=== PATIENT | male | born 1955 | race Caucasian/White ===

== ENCOUNTER 2020-02-23 14:28 | Emergency (ER) | payer MEDICARE, OTHER ==
--- NOTE | 2020-02-23 14:57 | ER Document Report ---
ED General - General Chief Complaint: S/S of Possible Stroke Stated Complaint: STROKE-LIKE SYMPTOMS Time Seen by Provider: 02/23/20 14:38 Primary Care Provider: MATEO GUTIÉRREZ MD [ACTIVE STAFF] - Follow up as needed Mode of Arrival: Ambulatory Information source: Patient Notes: 64-year-old male arrives by POV very sweaty after he was attempting to move a 200 pound rug into his truck today he became symptomatic with left facial numbness left tongue numbness ascending paralysis of his left hand to his shoulder with also numbness to his left lower extremity which lasted for around 30 minutes. 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 For the last several months he has been having 2-3 times each month increasing frequency of the symptoms. Patient denies any LOC. In fact he drove himself to both hospitals; initially in September and also today. 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 Patient reports also last year September 2019 he had his left TKR and in January 2018 right sided TKR TRAVEL OUTSIDE OF THE [place] IN LAST 30 DAYS: No - Related Data Allergies/Adverse Reactions: No Known Allergies Allergy (Verified 02/23/20 14:38) Home Medications: Allopurinol; metformin HCL ER; Atorovastatin Calcium; Lisinopril; fish Oil; Multi vitamin; Air born Past Medical History - General Information source: Patient - Social History Smoking Status: Never Smoker Cigarette use (# per day): No Chew tobacco use (# tins/day): No Smoking Education Provided: No Frequency of alcohol use: Social Drug Abuse: None Lives with: Family Family History: Reviewed & Not Pertinent Patient has suicidal ideation: No Patient has homicidal ideation: No Review of Systems - Review of Systems Constitutional: Weakness EENT: No symptoms reported Cardiovascular: No symptoms reported Respiratory: No symptoms reported Gastrointestinal: No symptoms reported Genitourinary: No symptoms reported Male Genitourinary: No symptoms reported Musculoskeletal: No symptoms reported Skin: No symptoms reported Hematologic/Lymphatic: No symptoms reported Neurological/Psychological: See HPI, Weakness, Loss of power, Numbness, Tingling Physical Exam - Vital signs Vitals: Resp Pulse Ox 18 98 02/23/20 14:37 02/23/20 14:37 Interpretation: Normal - General General appearance: Alert In distress: Mild - HEENT Head: Normocephalic Eyes: Normal Conjunctiva: Normal Cornea: Normal Extraocular movements intact: Yes Eyelashes: Normal Pupils: PERRL Pharynx: Normal Neck: Normal - Respiratory Respiratory status: No respiratory distress Chest status: Nontender Breath sounds: Normal Chest palpation: Normal - Cardiovascular Rhythm: Regular Heart sounds: Normal auscultation Murmur: No Friction rub: No Dottie's crunch: No - Abdominal Inspection: Normal Distension: No distension Bowel sounds: Normal Tenderness: Nontender Organomegaly: No organomegaly - Back Back: Normal - Extremities General upper extremity: Normal inspection - on right, Other - Left-sided numbness of left upper extremity left lower extremity General lower extremity: Normal inspection - on right - Neurological Neuro grossly intact: Yes Cognition: Normal Orientation: AAOx4 Arjun Coma Scale Eye Opening: Spontaneous Arjun Coma Scale Verbal: Oriented Arjun Coma Scale Motor: Obeys Commands Arjun Coma Scale Total: 15 Speech: Normal Cranial nerves: Normal Cerebellar coordination: Normal Motor strength normal: LUE, RUE, LLE, RLE - Psychological Associated symptoms: Normal affect - Skin Skin Temperature: Warm Skin Moisture: Dry Course - Vital Signs Vital signs: Temp Pulse Resp BP Pulse Ox 68 17 153/86 H 98 02/23/20 20:00 02/23/20 20:00 02/23/20 20:00 02/23/20 20:00 - Laboratory Result Diagrams: 02/23/20 14:36 02/23/20 14:36 Laboratory results interpreted by me: 02/23/20 02/23/20 14:36 14:36 RBC 3.94 L Hct 37.3 L MCH 34.7 H MCHC 36.6 H Eos % (Auto) 6.3 H BUN 21 H Glucose 122 H - Diagnostic Test Radiology reviewed: Reports reviewed Critical Care Note - Critical Care Note Total time excluding time spent on procedures (mins): 90 Comments: I advised patient of his CT findings and lab findings and he advises he wants to go home. I called [facility] and advised him of his request and I spoke with Golden at the transfer center and she will arrange for a neuro logist ; I attempted to call the number at [phone] but was advised to follow-up later. I advised patient to call this number tomorrow Discharge - Discharge Clinical Impression: TIA (transient ischemic attack) Condition: Good Disposition: HOME, SELF-CARE Additional Instructions: Follow-up with neurologist at transfer center at [facility]; return to ER as needed take medicines as directed. The telephone number for [facility] neurology is [phone] Referrals: MATEO GUTIÉRREZ MD [ACTIVE STAFF] - Follow up as needed
[2020-02-23 17:29] LABS: ABSOLUTE BASOPHILS # (AUTO) 0.1 10^3/uL (0.0-0.2); ABSOLUTE EOSINOPHILS # (AUTO) 0.4 10^3/uL (0.0-0.6); ABSOLUTE LYMPHOCYTES (AUTO) 1.2 10^3/uL (0.5-4.7); ABSOLUTE MONOCYTES (AUTO) 0.4 10^3/uL (0.1-1.4); ABSOLUTE NEUT (AUTO) 4.9 10^3/uL (1.7-8.2); EOSINOPHILS % (AUTO) 6.3 % (0-6); HEMATOCRIT 37.3 % (37.9-51.0); HEMOGLOBIN 13.7 g/dL (13.5-17.0); LYMPHOCYTES % (AUTO) 16.7 % (13-45); MEAN CORPUSCULAR HEMOGLOBIN 34.7 pg (27.0-33.4); MEAN CORPUSCULAR HGB CONC 36.6 g/dL (32.0-36.0); MEAN CORPUSCULAR VOLUME 95 fl (80-97); PLATELET COUNT 164 10^3/uL (150-450); RED BLOOD COUNT 3.94 10^6/uL (4.35-5.55); RED CELL DISTRIBUTION WIDTH 13.6 % (11.5-14.0); TOTAL CELLS COUNTED % (AUTO) 100 %
[2020-02-23 17:33] LABS: INTERNATIONAL RATION (INR) 1.02; PROTHROMBIN TIME 13.4 SEC (11.4-15.4)
[2020-02-23 17:49] LABS: ALBUMIN 4.3 g/dL (3.5-5.0); ALKALINE PHOSPHATASE 73 U/L (38-126); ANION GAP 8 (5-19); ASPARTATE AMINO TRANSFERASE 25 U/L (17-59); BILIRUBIN,TOTAL 0.7 mg/dL (0.2-1.3); BLOOD UREA NITROGEN 21 mg/dL (7-20); CALCIUM 9.4 mg/dL (8.4-10.2); CARBON DIOXIDE 27 mmol/L (22-30); CHLORIDE 104 mmol/L (98-107); CREATINE KINASE 74 U/L (55-170); GLUCOSE 122 mg/dL (75-110); POTASSIUM 4.3 mmol/L (3.6-5.0); TOTAL PROTEIN 6.9 g/dL (6.3-8.2)
--- NOTE | 2020-02-23 18:26 | RADIOLOGY REPORT (SQ) ---
EXAM DESCRIPTION: CT SOFT TISSUE NECK WITHOUT; CT HEAD WITHOUT COMPLETED DATE/TIME: 02/23/2020 6:13 pm REASON FOR STUDY: RIGHT SIDED STENOSIS; cva sx COMPARISON: None. TECHNIQUE: Noncontrast scanning from skull base through lung apices with review of bone, soft tissue and lung windows. Additional noncontrast imaging through the brain. Review of brain and subdural and bone windows. Reconstructed coronal and sagittal MPR images reviewed. All images stored on PACS. All CT scanners at this facility use dose modulation, iterative reconstruction, and/or weight based d osing when appropriate to reduce radiation dose to as low as reasonably achievable (ALARA). [facility]: Dose Right [facility]: CareDose [facility]: Dose Right [facility]: Teradose 4D [facility]: Smart [place] RADIATION DOSE: CT Rad equipment meets quality standard of care and radiation dose reduction techniq ues were employed. CTDIvol: 14.8 mGy. DLP: 531 mGy-cm.; CT Rad equipment meets quality standard of ca re and radiation dose reduction techniques were employed. CTDIvol: 53.2 mGy. DLP: 1017 mGy-cm. mGy. LIMITATIONS: None. FINDINGS: Brain Suspect mild small vessel disease. No hemorrhage or mass or shift. No suggestion of acute infarct. Bones intact. Clear paranasal sinuses. Neck Postoperative changes, prior right neck dissection. No suggestion of adenopathy. No gross mucosal t hickening or asymmetry. Bones intact. Clear lung apices. No sinus fluid levels, mild mucosal thick ening. IMPRESSION: 1. No acute intracranial abnormality. 2. Old scratch at evidence of previous surgery in the right neck. No acute or suspicious neck findin gs on non contrasted examination. TECHNICAL DOCUMENTATION: JOB ID: [id number] Quality ID # [id number]: Final reports with documentation of one or more dose reduction techniques (e.g., Au tomated exposure control, adjustment of the mA and/or kV according to patient size, use of iterative reconstruction technique) 2010 [employer]- All Rights Reserved Reading location - IP/workstation name: [email or web address]
--- NOTE | 2020-02-23 18:26 | RADIOLOGY REPORT (SQ) ---
EXAM DESCRIPTION: CT SOFT TISSUE NECK WITHOUT; CT HEAD WITHOUT COMPLETED DATE/TIME: 02/23/2020 6:13 pm REASON FOR STUDY: RIGHT SIDED STENOSIS; cva sx COMPARISON: None. TECHNIQUE: Noncontrast scanning from skull base through lung apices with review of bone, soft tissue and lung windows. Additional noncontrast imaging through the brain. Review of brain and subdural and bone windows. Reconstructed coronal and sagittal MPR images reviewed. All images stored on PACS. All CT scanners at this facility use dose modulation, iterative reconstruction, and/or weight based d osing when appropriate to reduce radiation dose to as low as reasonably achievable (ALARA). [facility]: Dose Right [facility]: CareDose [facility]: Dose Right [facility]: Teradose 4D [facility]: Smart [employer]. RADIATION DOSE: CT Rad equipment meets quality standard of care and radiation dose reduction techniq ues were employed. CTDIvol: 14.8 mGy. DLP: 531 mGy-cm.; CT Rad equipment meets quality standard of ca re and radiation dose reduction techniques were employed. CTDIvol: 53.2 mGy. DLP: 1017 mGy-cm. mGy. LIMITATIONS: None. FINDINGS: Brain Suspect mild small vessel disease. No hemorrhage or mass or shift. No suggestion of acute infarct. Bones intact. Clear paranasal sinuses. Neck Postoperative changes, prior right neck dissection. No suggestion of adenopathy. No gross mucosal t hickening or asymmetry. Bones intact. Clear lung apices. No sinus fluid levels, mild mucosal thick ening. IMPRESSION: 1. No acute intracranial abnormality. 2. Old scratch at evidence of previous surgery in the right neck. No acute or suspicious neck findin gs on non contrasted examination. TECHNICAL DOCUMENTATION: JOB ID: [id number] Quality ID # [id number]: Final reports with documentation of one or more dose reduction techniques (e.g., Au tomated exposure control, adjustment of the mA and/or kV according to patient size, use of iterative reconstruction technique) 2010 [email or web address]- All Rights Reserved Reading location - IP/workstation name: [email or web address]
--- NOTE | 2020-02-23 19:02 | EKG REPORT ---
SEVERITY:- NORMAL ECG - SINUS RHYTHM : Confirmed by: Zeeshan Suazo MD 23-Feb-2020 19:02:07
[2020-02-23 21:35] VITALS: BP 135/68
== END 2020-02-23 22:00 | disposition home or self-care (01) ==
LOC: ER 14:28
DX: G45.9 Transient cerebral ischemic attack, unspecified (principal); R61 Generalized hyperhidrosis; R20.0 Anesthesia of skin; Z79.899 Other long term (current) drug therapy
CPT/HCPCS: 36415; 70450; 70490; 80053; 82550; 83605; 84484; 85025; 85610; 93005; 93010; 99291; 99292